=== PATIENT | male | born 1985 | race Caucasian/White ===

== ENCOUNTER 2019-06-17 15:55 | Emergency (ER) | payer BC ==
[~2019-06-17] VITALS: Ht 188 cm; Wt 87.3 kg
[2019-06-17 15:57] VITALS: Ht 188 cm; Wt 87.3 kg
[2019-06-17] MEDS ORDERED: NEURONTIN 300300 MG PO (18:28)
[2019-06-17] MEDS ORDERED: TORADOL10 MG PO (18:28)
[2019-06-17] MEDS ORDERED: PREDNISONE20 MG PO (18:28)
[2019-06-17 19:08] VITALS: BP 122/84
== END 2019-06-17 19:08 | disposition home or self-care (01) ==
LOC: D.ER 15:55
DX: M54.5 Low back pain (principal); M54.16 Radiculopathy, lumbar region; E11.9 Type 2 diabetes mellitus without complications

== ENCOUNTER 2019-10-02 15:51 | Emergency (ER) | payer BC ==
[~2019-10-02] VITALS: Ht 188 cm; Wt 87.7 kg
[~2019-10-02 15:51] MED LIST: NEURONTIN 300300 MG PO; PREDNISONE20 MG PO; TORADOL10 MG PO
[2019-10-02 16:07] VITALS: Ht 188 cm; Wt 87.7 kg
[2019-10-02 18:17] LABS: HEMATOCRIT 46.7 % (42.0-54.0); HEMOGLOBIN 15.7 g/dL (13.5-17.5); LYMPHOCYTES 17.5 % (15-50); MCH 30.1 pg (26.0-34.0); MCHC 33.6 g/dL (31.0-37.0); MCV 89.5 fL (80.0-100.0); NEUTROPHILS 74.8 % (40-80); PLATELET COUNT 178 10x3/uL (130-400); RBC 5.22 10x6/uL (4.20-6.10); RDW 11.8 % (11.5-14.5); WBC 9.8 10x3/uL (4.8-10.8)
[2019-10-02 18:29] LABS: CALC OSMOLALITY 278 mosm/kg (275-300); CALCIUM 9.5 mg/dL (8.5-10.1); CARBON DIOXIDE 23.8 mmol/L (21.0-32.0); CHLORIDE - SERUM 103 mmol/L (98-107); CREATININE - SERUM 0.7 mg/dL (0.6-1.3); GLUCOSE 195 mg/dL (74-106); SODIUM 137 mmol/L (136-145); UREA NITROGEN 12 mg/dL (7-18); eGFR NON AFRICAN AMERICAN > 90 mL/min (90-120)
[2019-10-02 18:47] LABS: ALBUMIN 3.8 g/dL (3.4-5.0); ALKALINE PHOSPHATASE 98 U/L (30-120); ALT (SGPT) 67 U/L (10-68); PROTEIN - SERUM 7.8 g/dL (6.4-8.2)
[2019-10-02] MEDS ORDERED: ZOVIRAX800 MG PO (19:43)
[2019-10-02] MEDS ORDERED: TESSALON PERLE100 MG PO (19:44)
[2019-10-02 20:56] VITALS: BP 130/87
== END 2019-10-02 20:39 | disposition home or self-care (01) ==
LOC: D.ER 15:51
PROVIDERS: Family Medicine
DX: B34.9 Viral infection, unspecified (principal); R05 Cough; R68.89 Other general symptoms and signs; R19.7 Diarrhea, unspecified; E11.9 Type 2 diabetes mellitus without complications; R06.02 Shortness of breath; Z20.828 Contact with and (suspected) exposure to other viral communicable diseases